=== PATIENT | female | born 1985 | race Caucasian/White ===

== ENCOUNTER 2022-04-08 14:51 | Outpatient (RCR) | payer OTHER | END 2022-04-17 | LOC: M PT 14:51 | PROVIDERS: ATTEND Pediatrics | DX: I89.0 Lymphedema, not elsewhere classified (principal) ==

== ENCOUNTER → 2022-04-15 | Outpatient (CLI) | payer OTHER ==
[~2022-04-15] MED LIST: ISOVUE-370 76% 100ML VIAL As Ordered ONE
== END ==
LOC: M RAD 12:37 → EDUNIT# 13:30
PROVIDERS: ATTEND Surgery Vascular Surgery
DX: I82.421 Acute embolism and thrombosis of right iliac vein (principal); Z95.828 Presence of other vascular implants and grafts
CPT/HCPCS: 74177; Q9967

== ENCOUNTER → 2022-05-18 | Outpatient (RCR) | payer OTHER | LOC: M PT 04-25 15:45 | PROVIDERS: ATTEND Pediatrics | DX: I89.0 Lymphedema, not elsewhere classified (principal) ==

== ENCOUNTER 2022-06-03 14:00 | Emergency (ER) | payer OTHER ==
[~2022-06-03] VITALS: Ht 172.7 cm; Wt 127.3 kg
[2022-06-03 14:52] LABS: VENOUS HCO3 28.2 MEQ/L (23.0-27.0); VENOUS O2 SATURATION 70.6 % (60.0-80.0); VENOUS PARTIAL PRESSURE CO2 55.9 mmHg (38.0-50.0); VENOUS PARTIAL PRESSURE O2 39.2 mmHg (30.0-50.0); VENOUS STANDARD HCO3 24.8 MEQ/L; VENOUS TOTAL CO2 29.9 MEQ/L (24.0-28.0)
[2022-06-03 15:00] LABS: BASO # 0.1 10^3/uL (0.0-0.2); BASO % 0.8 % (0.0-1.0); EOS # 0.6 10^3/uL (0.0-0.5); EOS % 9.8 % (0.0-3.0); HEMATOCRIT 36.6 % (36.0-47.0); HEMOGLOBIN 11.7 g/dl (12.0-15.5); LYMPH # 1.4 10^3/uL (1.5-5.0); LYMPH % 22.3 % (24.0-44.0); MEAN CORPUSCULAR HEMOGLOBIN 26.5 pg (27.0-33.0); MEAN CORPUSCULAR VOLUME 82.8 fl (80.0-96.0); MONO # 0.4 10^3/uL (0.0-0.8); MONO % 6.6 % (2.0-8.0); NEUTROPHILS # 3.8 10^3/uL (1.5-8.5); NEUTROPHILS % 60.2 % (36.0-66.0); PLATELET COUNT, AUTOMATED 254 10^3/uL (150-450); RED BLOOD COUNT 4.42 10^6/uL (4.00-5.40); WHITE BLOOD COUNT 6.2 10^3/uL (4.0-10.0)
[2022-06-03 15:19] LABS: INR 1.1; PROTHROMBIN TIME 14.6 SECONDS (12.7-14.5)
[2022-06-03 15:21] LABS: HCG, SERUM QUALITATIVE NEGATIVE (NEGATIVE); PARTIAL THROMBOPLASTIN TIME 28.4 SECONDS (25.9-37.0)
[2022-06-03 15:34] LABS: CK-MB VALUE MASS 1.3 NG/ML (<3.6); MB/CK RELATIVE INDEX 0.75 (< OR =4)
[2022-06-03 15:38] LABS: ALBUMIN 3.1 GM/DL (3.2-5.2); ALT/SGPT 26 U/L (12-78); BILIRUBIN,DIRECT 0.1 MG/DL (0.0-0.2); BILIRUBIN,TOTAL 0.4 MG/DL (0.2-1.0); BLOOD UREA NITROGEN 16 MG/DL (7-18); CALCIUM LEVEL 8.6 MG/DL (8.5-10.1); CARBON DIOXIDE LEVEL 28 MEQ/L (21-32); CHLORIDE LEVEL 108 MEQ/L (98-107); CREATININE FOR GFR 0.94 MG/DL (0.55-1.30); FREE T4 0.96 NG/DL (0.76-1.46); GLOMERULAR FILTRATION RATE > 60.0 (>60); GLUCOSE, FASTING 91 MG/DL (70-100); LIPASE 85 U/L (73-393); NT-PRO BNP 21 PG/ML (<125); POTASSIUM SERUM 3.7 MEQ/L (3.5-5.1); SODIUM LEVEL 141 MEQ/L (136-145); TOTAL PROTEIN 6.9 GM/DL (6.4-8.2)
[2022-06-03 16:46] LABS: CK-MB VALUE MASS 1.3 NG/ML (<3.6); MB/CK RELATIVE INDEX 0.79 (< OR =4)
[2022-06-03] MEDS ORDERED: SYMBICORT 160/4.5MCG INHALER 6GM INH ONE (18:15)
[2022-06-03] MEDS ORDERED: ISOVUE-370 76% 100ML VIAL As Ordered ONE (18:17)
[2022-06-03] MEDS ORDERED: ACETAMINOPHEN TAB 650MG DOSE (2X325MG) PO ONE (18:30)
[2022-06-03 19:30] VITALS: BP 111/62
[2022-06-03] MEDS ORDERED: MONT10TA97 PO (20:00)
[2022-06-03] MEDS ORDERED: CETI-24 PO (20:00)
[2022-06-03] MEDS ORDERED: ELIQ5TAB PO (20:00)
[2022-06-03] MEDS ORDERED: LEVO50TA5 PO (20:00)
== END 2022-06-03 21:09 | disposition home or self-care (01) ==
LOC: M ED 14:00
DX: R07.9 Chest pain, unspecified (principal); Z86.711 Personal history of pulmonary embolism; Z79.01 Long term (current) use of anticoagulants; Z88.0 Allergy status to penicillin; Z91.013 Allergy to seafood; Z79.899 Other long term (current) drug therapy
CPT/HCPCS: 36415; 71045; 71275; 80048; 80076; 82550; 82553; 82803; 83690; 83880; 84439; 84443; 84703; 85025; 85610; 85730; 87040; 93005; 93041; 94640; 94760; 99285; Q9967

== ENCOUNTER 2022-06-10 08:30 | Outpatient (RCR) | payer OTHER ==
[~2022-06-10 08:30] MED LIST changes: +CETI-24 PO; +ELIQ5TAB PO; -ISOVUE-370 76% 100ML VIAL As Ordered ONE; +LEVO50TA5 PO; +MONT10TA97 PO
== END 2022-06-17 ==
LOC: M PT 08:30
PROVIDERS: ATTEND Pediatrics
DX: I89.0 Lymphedema, not elsewhere classified (principal)

== ENCOUNTER → 2022-07-13 | Outpatient (CLI) | payer OTHER ==
[~2022-07-13] MED LIST changes: +GASTROGRAFIN SOLUTION 30ML (Q9963) As Ordered ONE; +ISOVUE-370 76% 100ML VIAL As Ordered ONE
== END ==
LOC: M RAD 11:28
PROVIDERS: ATTEND Internal Medicine Hematology & Oncology
DX: C49.9 Malignant neoplasm of connective and soft tissue, unspecified (principal)
CPT/HCPCS: 74177; Q9963; Q9967

== ENCOUNTER → 2022-07-14 | Outpatient (REF) | payer OTHER ==
[~2022-07-14] MED LIST changes: -GASTROGRAFIN SOLUTION 30ML (Q9963) As Ordered ONE; -ISOVUE-370 76% 100ML VIAL As Ordered ONE
== END ==
LOC: M LAB REF 12:30
PROVIDERS: ATTEND Family Medicine Addiction Medicine
DX: R07.0 Pain in throat (principal)

== ENCOUNTER 2022-11-02 14:15 | Outpatient (RCR) | payer OTHER | END 2022-11-15 | LOC: M PT 14:15 | PROVIDERS: ATTEND Pediatrics | DX: I89.0 Lymphedema, not elsewhere classified (principal); R60.0 Localized edema ==

== ENCOUNTER 2022-12-15 08:22 | Outpatient (RCR) | payer OTHER | END 2022-12-16 | LOC: M PT 08:22 | PROVIDERS: ATTEND Pediatrics | DX: I89.0 Lymphedema, not elsewhere classified (principal); R60.0 Localized edema ==

== ENCOUNTER → 2023-01-03 | Outpatient (CLI) | payer OTHER ==
[~2023-01-03] MED LIST changes: +GASTROGRAFIN SOLUTION 30ML As Ordered ONE; +ISOVUE-370 76% 100ML VIAL As Ordered ONE
== END ==
LOC: M RAD 13:55
PROVIDERS: ATTEND Internal Medicine Hematology & Oncology
DX: C49.9 Malignant neoplasm of connective and soft tissue, unspecified (principal); C49.21 Malignant neoplasm of connective and soft tissue of right lower limb, including hip
CPT/HCPCS: 71260; 73701; 74177; Q9963; Q9967

== ENCOUNTER → 2023-03-06 | Outpatient (REF) | payer OTHER ==
[~2023-03-06] MED LIST changes: -GASTROGRAFIN SOLUTION 30ML As Ordered ONE; -ISOVUE-370 76% 100ML VIAL As Ordered ONE
[2023-03-06 17:42] LABS: BASO % 0.5 % (0.0-1.0); EOS # 0.4 10^3/uL (0.0-0.5); EOS % 5.4 % (0.0-3.0); HEMATOCRIT 40.5 % (36.0-47.0); LYMPH # 1.1 10^3/uL (1.5-5.0); LYMPH % 17.7 % (24.0-44.0); MEAN CORPUSCULAR HEMOGLOBIN 26.8 pg (27.0-33.0); MEAN CORPUSCULAR HGB CONC 32.1 g/dl (32.0-36.5); MEAN CORPUSCULAR VOLUME 83.5 fl (80.0-96.0); MONO # 0.5 10^3/uL (0.0-0.8); NEUTROPHILS # 4.4 10^3/uL (1.5-8.5); NEUTROPHILS % 68.8 % (36.0-66.0); PLATELET COUNT, AUTOMATED 253 10^3/uL (150-450); RED BLOOD COUNT 4.85 10^6/uL (4.00-5.40); WHITE BLOOD COUNT 6.5 10^3/uL (4.0-10.0)
== END ==
LOC: M LAB REF 16:30
PROVIDERS: ATTEND Physician Assistant
DX: Z12.4 Encounter for screening for malignant neoplasm of cervix (principal); Z11.3 Encounter for screening for infections with a predominantly sexual mode of transmission; N95.0 Postmenopausal bleeding

== ENCOUNTER → 2023-03-27 | Outpatient (CLI) | payer OTHER | LOC: M RAD 08:51 | PROVIDERS: ATTEND Physician Assistant | DX: N95.0 Postmenopausal bleeding (principal) ==

== ENCOUNTER 2023-06-05 14:39 | Emergency (ER) | payer OTHER ==
[~2023-06-05] VITALS: Ht 172.7 cm; Wt 133.4 kg
[2023-06-05] MEDS ORDERED: SYMB16INH (15:07)
[2023-06-05] MEDS ORDERED: FLUT50SP17 (15:07)
[2023-06-05 15:29] LABS: LIPASE 25 U/L (12-53)
[2023-06-05 15:31] LABS: ALBUMIN 3.1 G/DL (3.2-5.2); ALKALINE PHOSPHATASE 113 U/L (46-116); ALT/SGPT 25 U/L (7.0-40); AST/SGOT 18 U/L (<34); BILIRUBIN,DIRECT 0.2 MG/DL (<0.4); BILIRUBIN,TOTAL 0.5 MG/DL (0.3-1.2); BLOOD UREA NITROGEN 17 MG/DL (9-23); CALCIUM LEVEL 8.4 MG/DL (8.5-10.1); CARBON DIOXIDE LEVEL 26 MMOL/L (20-31); CHLORIDE LEVEL 108 MMOL/L (98-107); CK-MB VALUE MASS < 1.0 NG/ML (<3.6); CPK CREATINE PHOSPHOKINASE 143 U/L (34-145); CREATININE FOR GFR 0.97 MG/DL (0.55-1.30); GLOMERULAR FILTRATION RATE > 60.0 (>60); GLUCOSE, FASTING 89 MG/DL (60-100); MB/CK RELATIVE INDEX 0.69 (< OR =4); POTASSIUM SERUM 4.2 MMOL/L (3.5-5.1); SODIUM LEVEL 142 MMOL/L (136-145); TOTAL PROTEIN 6.7 G/DL (5.7-8.2)
[2023-06-05 15:35] LABS: FREE T4 0.92 NG/DL (0.89-1.76)
[2023-06-05 15:36] LABS: THYROID STIMULATING HORMONE 6.356 uIU/ML (0.55-4.78)
[2023-06-05 15:56] LABS: HCG, SERUM QUALITATIVE NEGATIVE (NEGATIVE)
[2023-06-05 17:17] LABS: INR 1.2; PARTIAL THROMBOPLASTIN TIME 29.9 SECONDS (24.8-34.2); PROTHROMBIN TIME 14.8 SECONDS (12.5-14.5)
[2023-06-05] MEDS ORDERED: ISOVUE-370 76% 100ML VIAL As Ordered ONE (17:18)
[2023-06-05 17:32] LABS: BASO % 0.6 % (0.0-1.0); EOS # 0.4 10^3/uL (0.0-0.5); EOS % 5.6 % (0.0-3.0); HEMATOCRIT 38.3 % (36.0-47.0); HEMOGLOBIN 12.6 g/dl (12.0-15.5); LYMPH # 1.3 10^3/uL (1.5-5.0); LYMPH % 19.9 % (24.0-44.0); MEAN CORPUSCULAR HEMOGLOBIN 27.3 pg (27.0-33.0); MEAN CORPUSCULAR HGB CONC 32.9 g/dl (32.0-36.5); MEAN CORPUSCULAR VOLUME 82.9 fl (80.0-96.0); MONO # 0.5 10^3/uL (0.0-0.8); MONO % 7.1 % (2.0-8.0); NEUTROPHILS # 4.5 10^3/uL (1.5-8.5); NEUTROPHILS % 66.5 % (36.0-66.0); PLATELET COUNT, AUTOMATED 241 10^3/uL (150-450); RED BLOOD COUNT 4.62 10^6/uL (4.00-5.40); WHITE BLOOD COUNT 6.8 10^3/uL (4.0-10.0)
[2023-06-05 17:54] LABS: CK-MB VALUE MASS < 1.0 NG/ML (<3.6)
[2023-06-05 17:56] LABS: CPK CREATINE PHOSPHOKINASE 139 U/L (34-145); MB/CK RELATIVE INDEX 0.71 (< OR =4)
[2023-06-05 18:24] VITALS: BP 123/59; TEMP 97.6; O2SAT 99
== END 2023-06-05 18:32 | disposition home or self-care (01) ==
LOC: M ED 14:39
DX: R07.89 Other chest pain (principal); I25.10 Atherosclerotic heart disease of native coronary artery without angina pectoris; Z86.718 Personal history of other venous thrombosis and embolism; Z86.711 Personal history of pulmonary embolism; Z79.01 Long term (current) use of anticoagulants; Z88.0 Allergy status to penicillin; Z91.013 Allergy to seafood; Z79.899 Other long term (current) drug therapy
CPT/HCPCS: 36415; 71046; 71275; 80048; 80076; 82550; 82553; 83690; 83880; 84439; 84443; 84703; 85025; 85610; 85730; 93005; 93041; 94760; 99284; Q9967

== ENCOUNTER 2023-08-02 07:03 | Emergency (ER) | payer OTHER ==
[~2023-08-02] VITALS: Ht 172.7 cm; Wt 140.9 kg
[~2023-08-02 07:03] MED LIST changes: +FLUT50SP17 NARES; +SYMB16INH INH
[2023-08-02 07:43] LABS: BASO % 0.4 % (0.0-1.0); EOS # 0.3 10^3/uL (0.0-0.5); EOS % 4.1 % (0.0-3.0); HEMATOCRIT 40.3 % (36.0-47.0); HEMOGLOBIN 13.3 g/dl (12.0-15.5); LYMPH # 1.2 10^3/uL (1.5-5.0); LYMPH % 15.5 % (24.0-44.0); MEAN CORPUSCULAR HEMOGLOBIN 27.5 pg (27.0-33.0); MEAN CORPUSCULAR VOLUME 83.3 fl (80.0-96.0); MONO # 0.6 10^3/uL (0.0-0.8); MONO % 7.9 % (2.0-8.0); NEUTROPHILS # 5.4 10^3/uL (1.5-8.5); NEUTROPHILS % 71.8 % (36.0-66.0); PLATELET COUNT, AUTOMATED 247 10^3/uL (150-450); RED BLOOD COUNT 4.84 10^6/uL (4.00-5.40); WHITE BLOOD COUNT 7.5 10^3/uL (4.0-10.0)
[2023-08-02 08:13] LABS: RSV AMPLIFICATION NEGATIVE (NEGATIVE)
[2023-08-02 09:39] LABS: CK-MB VALUE MASS < 1.0 NG/ML (<3.6)
[2023-08-02 09:42] LABS: CPK CREATINE PHOSPHOKINASE 148 U/L (34-145); MB/CK RELATIVE INDEX 0.67 (< OR =4)
[2023-08-02 10:18] LABS: LIPASE 33 U/L (12-53)
[2023-08-02 10:41] LABS: ALBUMIN 3.1 G/DL (3.2-5.2); ALKALINE PHOSPHATASE 140 U/L (46-116); ALT/SGPT 663 U/L (7.0-40); AST/SGOT 1022 U/L (<34); BILIRUBIN,DIRECT 0.5 MG/DL (<0.4); BILIRUBIN,TOTAL 1.2 MG/DL (0.3-1.2); BLOOD UREA NITROGEN 13 MG/DL (9-23); CALCIUM LEVEL 8.2 MG/DL (8.5-10.1); CARBON DIOXIDE LEVEL 26 MMOL/L (20-31); CHLORIDE LEVEL 107 MMOL/L (98-107); CK-MB VALUE MASS < 1.0 NG/ML (<3.6); CPK CREATINE PHOSPHOKINASE 141 U/L (34-145); CREATININE FOR GFR 0.87 MG/DL (0.55-1.30); GLOMERULAR FILTRATION RATE > 60.0 (>60); GLUCOSE, FASTING 93 MG/DL (60-100); POTASSIUM SERUM 4.3 MMOL/L (3.5-5.1); SODIUM LEVEL 140 MMOL/L (136-145); TOTAL PROTEIN 6.5 G/DL (5.7-8.2)
[2023-08-02] MEDS ORDERED: PANTOPRAZOLE 40MG VIAL IV ONE (11:50)
[2023-08-02] MEDS ORDERED: SUCRALFATE 1 GM TAB PO ONE (11:50)
[2023-08-02] MEDS ORDERED: ONDANSETRON 4MG 2ML VIAL IV ONE (11:50)
[2023-08-02] MEDS ORDERED: NS 1,000 ML IV ONE ×2 (11:50→16:45)
[2023-08-02 12:43] LABS: INR 1.05; PROTHROMBIN TIME 13.4 SECONDS (12.5-14.5)
[2023-08-02] MEDS ORDERED: LORazepam 2 MG/ML 1ML VIAL IV STA (13:33)
[2023-08-02 13:35] LABS: HEPATITIS B CORE ANTIBODY IGM NEGATIVE (NEGATIVE); HEPATITIS C VIRUS ABY INDEX 0.03 INDEX (<0.8)
[2023-08-02] MEDS ORDERED: ISOVUE-370 76% 100ML VIAL As Ordered ONE (17:35)
[2023-08-02 19:18] LABS: ALBUMIN 2.8 G/DL (3.2-5.2); BILIRUBIN,TOTAL 2.1 MG/DL (0.3-1.2); TOTAL PROTEIN 6.1 G/DL (5.7-8.2)
[2023-08-02] MEDS ORDERED: MED REC IN PROGRESS XX SCH (19:40)
[2023-08-02] MEDS ORDERED: LEVO88TA3 PO (20:47)
[2023-08-02] MEDS ORDERED: EPIP0.3I2 INJ (20:47)
[2023-08-02] MEDS ORDERED: IBUP-359 PO (20:47)
[2023-08-02] MEDS ORDERED: ALBU8.5H INH (20:47)
[2023-08-02] MEDS ORDERED: HOME MED LIST COMPLETE! XX SCH (21:05)
[2023-08-02 23:25] VITALS: BP 117/69; TEMP 97.8; O2SAT 100
== END 2023-08-02 23:25 | disposition short-term general hospital (02) ==
LOC: M ED 07:03
DX: K80.80 Other cholelithiasis without obstruction (principal); R74.01 Elevation of levels of liver transaminase levels; I49.8 Other specified cardiac arrhythmias; I45.10 Unspecified right bundle-branch block; Z88.0 Allergy status to penicillin; Z91.013 Allergy to seafood; Z86.711 Personal history of pulmonary embolism; Z79.52 Long term (current) use of systemic steroids; Z79.899 Other long term (current) drug therapy
CPT/HCPCS: 36415; 71046; 74177; 76705; 80047; 80048; 80076; 82550; 82553; 83690; 84702; 85025; 85610; 85730; 86705; 86709; 86803; 87340; 87631; 93005; 96361; 96374; 99284; C9113; J2405; Q9967

== ENCOUNTER → 2023-10-30 | Outpatient (REF) | payer OTHER ==
[~2023-10-30] MED LIST changes: +ALBU8.5H INH; +EPIP0.3I2 INJ; -FLUT50SP17 NARES; +FLUTISP NARES; +IBUP-359 PO; +LEVO88TA3 PO
== END ==
LOC: M LAB REF 16:44
PROVIDERS: ATTEND Pediatrics
DX: E03.9 Hypothyroidism, unspecified (principal)

== ENCOUNTER → 2023-10-30 | Outpatient (CLI) | payer OTHER ==
[~2023-10-30] MED LIST changes: +ISOVUE-370 76% 100ML VIAL As Ordered ONE
== END ==
LOC: M RAD 07:08
PROVIDERS: ATTEND Nurse Practitioner Family
DX: C49.21 Malignant neoplasm of connective and soft tissue of right lower limb, including hip (principal)
CPT/HCPCS: 73701; Q9967

== ENCOUNTER → 2024-01-08 | Outpatient (CLI) | payer OTHER ==
[~2024-01-08] MED LIST changes: +GASTROGRAFIN SOLUTION 30ML ONE; -ISOVUE-370 76% 100ML VIAL As Ordered ONE; +ISOVUE-370 76% 100ML VIAL ONE
== END ==
LOC: M PLAIMG 09:29
PROVIDERS: ATTEND Nurse Practitioner Family
DX: N95.0 Postmenopausal bleeding (principal); C49.21 Malignant neoplasm of connective and soft tissue of right lower limb, including hip; J98.11 Atelectasis
CPT/HCPCS: 71260; 74177; Q9963; Q9967

== ENCOUNTER → 2024-01-30 | Outpatient (REF) | payer OTHER ==
[~2024-01-30] MED LIST changes: -GASTROGRAFIN SOLUTION 30ML ONE; -ISOVUE-370 76% 100ML VIAL ONE
== END ==
LOC: M LAB REF 17:38
PROVIDERS: ATTEND Pediatrics
DX: E03.9 Hypothyroidism, unspecified (principal)

== ENCOUNTER → 2024-05-14 | Outpatient (REF) | payer OTHER ==
[2024-05-14 18:37] LABS: BASO # 0.1 10^3/uL (0.0-0.2); BASO % 0.6 % (0.0-1.0); EOS # 0.5 10^3/uL (0.0-0.5); EOS % 6.2 % (0.0-3.0); HEMATOCRIT 40.3 % (36.0-47.0); HEMOGLOBIN 13.3 g/dl (12.0-15.5); LYMPH # 1.3 10^3/uL (1.5-5.0); LYMPH % 16.1 % (24.0-44.0); MEAN CORPUSCULAR HEMOGLOBIN 27.8 pg (27.0-33.0); MEAN CORPUSCULAR VOLUME 84.3 fl (80.0-96.0); MONO # 0.5 10^3/uL (0.0-0.8); MONO % 6.6 % (2.0-8.0); NEUTROPHILS # 5.8 10^3/uL (1.5-8.5); NEUTROPHILS % 70.3 % (36.0-66.0); PLATELET COUNT, AUTOMATED 305 10^3/uL (150-450); RED BLOOD COUNT 4.78 10^6/uL (4.00-5.40); WHITE BLOOD COUNT 8.2 10^3/uL (4.0-10.0)
[2024-05-14 19:01] LABS: CHOLESTEROL RISK RATIO 3.72 (<5); HDL CHOLESTEROL 46.5 MG/DL (>40); LDL CHOLESTEROL 96.9 MG/DL (<100); NON-HDL-C 126.5 MG/DL
[2024-05-14 19:02] LABS: HEMOGLOBIN A1c 5.4 % (4.0-6.0)
[2024-05-14 19:05] LABS: THYROID STIMULATING HORMONE 2.508 uIU/ML (0.55-4.78)
== END ==
LOC: M LAB REF 16:50
PROVIDERS: ATTEND Pediatrics
DX: E03.9 Hypothyroidism, unspecified (principal); N93.9 Abnormal uterine and vaginal bleeding, unspecified; E66.9 Obesity, unspecified

== ENCOUNTER → 2024-07-23 | Outpatient (CLI) | payer OTHER ==
[~2024-07-23] MED LIST changes: +GASTROGRAFIN SOLUTION 30ML As Ordered ONE; +ISOVUE-370 76% 100ML VIAL As Ordered ONE
== END ==
LOC: M RAD 16:00
PROVIDERS: ATTEND Internal Medicine Hematology & Oncology
DX: C49.9 Malignant neoplasm of connective and soft tissue, unspecified (principal)
CPT/HCPCS: 71260; 74177; Q9963; Q9967

== ENCOUNTER 2024-10-03 14:53 | Outpatient (RCR) | payer OTHER ==
[~2024-10-03 14:53] MED LIST changes: -GASTROGRAFIN SOLUTION 30ML As Ordered ONE; -ISOVUE-370 76% 100ML VIAL As Ordered ONE
== END 2024-10-18 ==
LOC: M PT 14:53
PROVIDERS: ATTEND Nurse Practitioner Family
DX: I89.0 Lymphedema, not elsewhere classified (principal); C49.9 Malignant neoplasm of connective and soft tissue, unspecified

== ENCOUNTER 2024-11-08 15:22 | Outpatient (RCR) | payer OTHER | END 2024-11-15 | LOC: M PT 15:22 | PROVIDERS: ATTEND Nurse Practitioner Family | DX: I89.0 Lymphedema, not elsewhere classified (principal) ==

== ENCOUNTER 2024-12-13 14:24 | Outpatient (RCR) | payer OTHER | END 2024-12-16 | LOC: M PT 14:24 | PROVIDERS: ATTEND Nurse Practitioner Family | DX: I89.0 Lymphedema, not elsewhere classified (principal) ==

== ENCOUNTER → 2025-02-04 | Outpatient (CLI) | payer OTHER ==
[~2025-02-04] MED LIST changes: +ISOVUE-370 76% 100ML VIAL As Ordered ONE
== END ==
LOC: M RAD 10:22
PROVIDERS: ATTEND Nurse Practitioner Family
DX: C49.9 Malignant neoplasm of connective and soft tissue, unspecified (principal); Z95.828 Presence of other vascular implants and grafts
CPT/HCPCS: 71260; 73701; 74177; Q9967

== ENCOUNTER → 2025-04-07 | Outpatient (REF) | payer OTHER ==
[~2025-04-07] MED LIST changes: -ISOVUE-370 76% 100ML VIAL As Ordered ONE
[2025-04-07 18:33] LABS: CHOLESTEROL LEVEL 160.0 MG/DL (<200); CHOLESTEROL RISK RATIO 3.54 (<5); LDL CHOLESTEROL 81.3 MG/DL (<100); NON-HDL-C 114.9 MG/DL; TRIGLYCERIDES LEVEL 168.0 MG/DL (<150)
[2025-04-07 19:13] LABS: ESTIMATED AVERAGE GLUCOSE 117.0 MG/DL (60-110)
== END ==
LOC: M LAB REF 17:33
PROVIDERS: ATTEND Pediatrics
DX: E03.9 Hypothyroidism, unspecified (principal); Z68.41 Body mass index [BMI] 40.0-44.9, adult; E66.813 Obesity, class 3

== ENCOUNTER → 2025-07-09 | Outpatient (REF) | payer OTHER ==
[2025-07-09 18:25] LABS: ESTIMATED AVERAGE GLUCOSE 114.0 MG/DL (60-110)
== END ==
LOC: M LAB REF 16:17
PROVIDERS: ATTEND Pediatrics
DX: R73.03 Prediabetes (principal); E03.9 Hypothyroidism, unspecified